=== PATIENT | female | born 1975 | race Caucasian/White ===

== ENCOUNTER → 2017-03-18 | Outpatient (CLI) | payer OTHER ==
--- NOTE | 2017-03-18 10:49 | KCIC ---
MRI Lumbar Spine without contrast History: Low back pain radiating into both legs, left greater than right leg pain for 1 to 2 years Technique: Multiplanar, multi sequential noncontrast MR imaging was performed of the lumbar spine. Contrast: None Comparison: None Findings: Lumbar vertebral body stature and AP alignment are preserved. Conus terminates at T12-L1. Intervertebral disc spaces are adequate. There is no significant marrow edema. L2-L3: Spinal canal and neural foramina are adequate. There is mild facet hypertrophic change and prominence of posterior epidural fat. L3-L4: Spinal canal and neural foramina are adequate. L4-L5: Neural foramina and spinal canal are adequate. L5-S1: Neural foramina and spinal canal are adequate. There is prominence of epidural fat greater anteriorly with some preserved central subarachnoid space at the intervertebral disc space level. Impression: 1. There is no significant lumbar spinal stenosis or neural foramina compromise. There is epidural lipomatosis greater anteriorly at the L5-S1 level although some preserved central subarachnoid space at the intervertebral disc space level. Electronically signed by: Tanner Jacome MD (03/18/2017 10:46 AM)
== END | disposition home or self-care (01) ==
LOC: KCIC MRI 09:43
PROVIDERS: ATTEND Internal Medicine
DX: M54.5 Low back pain (principal); R94.131 Abnormal electromyogram [EMG]; E88.2 Lipomatosis, not elsewhere classified
CPT/HCPCS: 72148

== ENCOUNTER → 2019-04-01 | Outpatient (CLI) | payer OTHER ==
--- NOTE | 2019-04-01 14:19 | KCIC ---
MRI of the brain without contrast 04/01/2019 Clinical History: Migraine headaches with facial numbness and blurry vision for 2 months. Technique: Unenhanced T1-weighted sagittal and axial, T2-weighted axial and coronal and FLAIR, gradient echo and diffusion-weighted axial images of the brain were obtained. Findings: The ventricles and sulci are within normal limits in size and configuration. No area of significant abnormal signal intensity is seen involving brain parenchyma. No extra-axial fluid collection is seen. There is no MRI evidence of acute ischemia/infarction. The orbits are within normal limits. Mild mucosal thickening in seen scattered throughout the paranasal sinuses. Normal flow voids are seen within the major vascular structures surrounding the brain parenchyma. Impression: Essentially negative study. Electronically signed by: Poncho Loja MD (04/01/2019 2:16 PM) [id number]
== END | disposition home or self-care (01) ==
LOC: KCIC MRI 12:58
PROVIDERS: ATTEND Registered Nurse
DX: J34.89 Other specified disorders of nose and nasal sinuses (principal); G43.909 Migraine, unspecified, not intractable, without status migrainosus; H53.8 Other visual disturbances
CPT/HCPCS: 70551

== ENCOUNTER → 2019-04-04 | Outpatient (CLI) | payer OTHER ==
--- NOTE | 2019-04-01 14:28 | KCIC ---
MRA of the brain without contrast 04/01/2019 Clinical History: Migraine headaches with blurry vision and facial numbness for 2 months. Technique: Using 3-D time of flight techniques, a MRA of the major arterial structures surrounding the [place] was performed. Findings: MRA images of the anterior and posterior circulations are within normal limits. No area of stenosis or occlusion is seen. No intracranial aneurysm is seen. Impression: Negative study. Electronically signed by: Poncho Loja MD (04/01/2019 2:25 PM) [id number]
== END | disposition home or self-care (01) ==
LOC: KCIC MRI 13:15
PROVIDERS: ATTEND Psychiatry & Neurology Neurology with Special Qualifications in Child Neurology
DX: G43.809 Other migraine, not intractable, without status migrainosus (principal); H53.8 Other visual disturbances; R20.0 Anesthesia of skin
CPT/HCPCS: 70544